=== PATIENT | female | born 1995 | race Caucasian/White ===

== ENCOUNTER 2024-01-22 20:02 | Emergency (ER) | payer MEDICAID | END 2024-01-22 21:20 | disposition left against medical advice (07) | LOC: MERGE 20:02 → VM.ED 20:02 | DX: Z53.21 Procedure and treatment not carried out due to patient leaving prior to being seen by health care provider (principal) ==

== ENCOUNTER 2024-04-17 18:26 | Emergency (ER) | payer MEDICAID ==
[2024-04-17 19:14] LABS: BASOPHILS PERCENT AUTO 0.4 % (0.2-1.2); EOSINOPHILS ABSOLUTE AUTO 0.5 x10^3/uL (0.0-0.5); EOSINOPHILS PERCENT AUTO 4.1 % (0.0-4.0); HEMATOCRIT 39.1 % (33.0-47.0); HEMOGLOBIN 13.3 g/dL (12.0-16.0); IMMATURE GRAN ABSOLUTE AUTO 0.02 x10^3/uL (0.00-0.07); LYMPHOCYTES ABSOLUTE AUTO 3.8 x10^3/uL (1.0-4.8); LYMPHOCYTES PERCENT AUTO 34.2 % (25.0-50.0); MEAN CORPUSCULAR VOLUME 88.3 fL (78.0-93.0); MONOCYTES ABSOLUTE AUTO 0.8 x10^3/uL (0.0-0.8); MONOCYTES PERCENT AUTO 6.8 % (2.0-11.0); NEUTROPHILS ABSOLUTE AUTO 6.1 x10^3/uL (1.8-7.7); NEUTROPHILS PERCENT AUTO 54.3 % (50.0-80.0); PLATELET COUNT,PLT 304 x10^3/uL (130-400); RED BLOOD CELL COUNT 4.43 x10^6/uL (4.00-5.50); WHITE BLOOD CELL COUNT,WBC 11.2 x10^3/uL (4.0-10.0)
[2024-04-17 19:28] LABS: PROTHROMBIN TIME 10.4 SEC (8.9-11.5); PTT,PARTIAL THROMBOPLSTIN TIME 29.7 SEC (21.9-33.8)
[2024-04-17 19:36] LABS: LACTIC ACID 1.5 mmol/L (0.4-2.0)
[2024-04-17 19:37] LABS: APPEARANCE,URINE CLEAR (CLEAR); BILIRUBIN,URINE NEGATIVE (NEGATIVE); COLOR,URINE YELLOW (YELLOW); GLUCOSE,URINE NEGATIVE (NEGATIVE); KETONES,URINE NEGATIVE (NEGATIVE); LEUKOCYTE ESTERASE,URINE NEGATIVE (NEGATIVE); NITRITE,URINE NEGATIVE (NEGATIVE); OCCULT BLOOD,URINE NEGATIVE (NEGATIVE); PROTEIN,URINE NEGATIVE (NEGATIVE); UROBILINOGEN,URINE 0.2 EU/dL (0.2)
[2024-04-17 19:39] LABS: A/G RATIO 0.92; ALANINE AMINOTRANSFERASE,ALT 24 U/L (14-59); ALBUMIN 3.5 g/dL (3.4-5.0); ALKALINE PHOSPHATASE 79 U/L (46-116); ANION GAP 11.7 mmol/L (5-15); ASPARTATE AMNIOTRANSFERASE,AST 15 U/L (15-37); BILIRUBIN TOTAL 0.2 mg/dL (0.2-1.0); BLOOD UREA NITROGEN,BUN 8 mg/dL (7-18); C-REACTIVE PROTEIN < 0.50 mg/dL (<=0.50); CALCIUM 8.5 mg/dL (8.5-10.1); CARBON DIOXIDE,CO2 27 mmol/L (21-32); CHLORIDE,CL 105 mmol/L (98-107); CREATININE 0.7 mg/dL (0.55-1.02); EST CRCL DRUG DOSING (CG) 113.01 mL/min; ESTIMATED GFR 121 mL/min (>=60); GLUCOSE RANDOM 76 mg/dL (70-99); MAGNESIUM 1.9 mg/dL (1.8-2.4); POTASSIUM,K 3.7 mmol/L (3.5-5.1); PROTEIN TOTAL,TP 7.3 g/dL (6.4-8.2); SODIUM,NA 140 mmol/L (136-145); TSH ULTRASENSITIVE 2.354 uIU/mL (0.358-3.74)
[2024-04-17] MEDS: Azithromycin 250 MG Tab PO ONE (19:55)
[2024-04-17] MEDS: cefTRIAXone 1 GM, Lidocaine 1% 2.1 ML IM ONE (19:56)
[2024-04-17] MEDS: Take Home: metroNIDAZOLE 500 MG Tab, 6 Tab Pack PO ONE (20:01)
[2024-04-19 12:12] LABS: C.TRACHOMATIS BY TMA Negative (Negative); N.GONORRHOEAE BY TMA Negative (Negative); SOURCE URINE
[2024-04-20 16:06] LABS: HIV 1,2 COMBO AG/AB CIA W/RFLX Negative (Negative)
== END 2024-04-17 20:12 | disposition home or self-care (01) ==
LOC: VM.ED 18:26
DX: A56.09 Other chlamydial infection of lower genitourinary tract (principal); N93.9 Abnormal uterine and vaginal bleeding, unspecified; F17.210 Nicotine dependence, cigarettes, uncomplicated; Z91.040 Latex allergy status
CPT/HCPCS: 36415; 80053; 81003; 81025; 83605; 83735; 84443; 85025; 85610; 85730; 86140; 86592; 87210; 87389; 87491; 87591; 96372; 99284; A9270; J0696; J3490